=== PATIENT | male | born 1965 | race Caucasian/White ===

== ENCOUNTER 2019-08-16 09:04 | Emergency (ER) | payer MEDICAID, SELFPAY ==
--- NOTE | ~2019-08-16 | CT_ITS ---
EXAMINATION: CT brain wo con DATE: 08/16/2019 09:54 INDICATION: Head injury. TECHNIQUE: Computed tomography (CT) of the head was performed without intravenous contrast. The mA wa s adjusted according to patient size. Iterative reconstruction technique was employed. The dose-lengt h product was 1059.33 mGy-cm. COMPARISON: Head CT 12/26/2018 FINDINGS: There is no intracranial hemorrhage, acute infarction, or abnormal intracranial mass lesion . The ventricles are normal in size. The orbits are normal. There is mild mucosal thickening in the p aranasal sinuses. The mastoid air cells are normal. IMPRESSION: 1. Normal brain. Reviewed, dictated and finalized at location A. [employer] IMPRESSION: 1. Normal brain.
--- NOTE | 2019-08-16 09:35 | ED.FALL ---
HPI - Fall General Chief Complaint: Fall Stated Complaint: fall/hi Time Seen by Provider: 08/16/19 09:27 Source: patient Mode of arrival: ambulatory Limitations: no limitations History of Present Illness HPI Narrative: Pt is a 53 y/o male who presents to the ED with c/o a fall that lead to a head injury yesterday. Pt states that he was standing at a [employer] and was leaning on something when the back wheels fell off and he hit the back of his head. Pt states that there was some blood present to the back of his head. Pt denies LOC. He reports intermittent nausea since his fall. complaint: fall Onset (ago): day(s) (yesterday) Fall from: standing Place fall occurred: other (super 8) Loss of consciousness: none Symptoms prior to fall: none Context: tripped/slipped Location of injury: head Associated symptoms (after fall): other (nausea) Related Data Allergies Allergy/AdvReac Type Severity Reaction Status Date / Time No Known Allergies Allergy Unverified 02/21/19 09:30 Review of Systems Review of Systems: All systems reviewed & are unremarkable except as noted in HPI and below Gastrointestinal: Gastrointestinal: Reports nausea Neurologic: Reports other (head injury) Comments: Denies: LOC PMFSH Past Medical History Medical History (Updated 08/16/19 @ 11:44 by Peyman Park MD) Arthritis Left wrist fracture Prediabetes Right wrist fracture Shoulder fracture Surgical History Surgical History (Updated 08/16/19 @ 10:03 by Elisabeth Osborn) No significant past surgical history Social History Social History (Updated 08/16/19 @ 10:03 by Elisabeth Osborn) Smoking status: Never smoker Gender identity (if verbalized by the patient): Male Exam Narrative: Exam Narrative: GENERAL: Well-appearing, well-nourished, and in no acute distress. HEAD: Normocephalic, atraumatic.has an abrasion on the scalp EYES: PERRLA and EOMI. ENT: Nares clear, no rhinorrhea or epistaxis. Mucous membranes moist. NECK: Supple. CHEST: Clear to auscultation. No respiratory distress. HEART: Regular rate and rhythm. No murmur heard. Normal peripheral pulses. ABDOMEN: Soft, non tender, nondistended, normal active bowel sounds. EXTREMITIES: Normal range of motion. No edema. SKIN: Warm, dry, no rash. NEURO: No focal deficits. Alert and oriented x3. PSYCH: Normal mood and affect. Course Course Emergency Course: Inform patient about has CT findings. On review of his vital signs were found to have elevated blood pressure. Patient states that he has not taken his blood pressure medicine for the last 3 days as is he keeps forgetting. Advised him to be compliant with his medication, take Tylenol or ibuprofen for headache and follow-up with his primary doctor Vital Signs Vital signs: Vital Signs Temperature 36.9 C 08/16/19 10:00 Pulse Rate 92 08/16/19 10:00 Respiratory Rate 18 08/16/19 10:00 Pulse Oximetry 99 08/16/19 10:00 Temperature 36.9 C 08/16/19 10:00 Pulse Rate 84 08/16/19 11:09 Respiratory Rate 24 H 08/16/19 11:09 Blood Pressure 224/90 H 08/16/19 11:09 Pulse Oximetry 98 08/16/19 11:09 MDM - Fall Imaging Data Radiologist's impression: ITS Impressions Head CT 08/16/19 10:02 IMPRESSION: 1. Normal brain. Discharge Plan Discharge Clinical Impression: Minor head injury, Hypertension Patient Disposition: Home, Self-Care Condition: Stable Instructions: Head Injury (ED), Chronic Hypertension (ED) Additional Instructions: continue home medication follow iwht your doctor in the next few days to re check blood pressure, take Tylenol for headache. Follow-up/Referrals: Vy,AMAURI Reynolds [Primary Care Provider] - Time of Disposition: 11:44
[2019-08-16 10:00] VITALS: PULSE 92; RESP 18; TEMP 36.9; O2SAT 99
[2019-08-16 11:09] VITALS: BP 224/90; PULSE 84; RESP 24; O2SAT 98
[2019-08-16] MEDS: CLONIDINE HCL 0.2 MG TABLET PO (11:25)
[2019-08-16 11:54] VITALS: BP 227/99; PULSE 85; RESP 19; O2SAT 99
== END 2019-08-16 11:55 | disposition home or self-care (01) ==
PROVIDERS: Emergency Provider Family Medicine; PCP Registered Nurse
DX: S09.90XA Unspecified injury of head, initial encounter (principal); I10 Essential (primary) hypertension; R73.03 Prediabetes; W18.39XA Other fall on same level, initial encounter
CPT/HCPCS: 70450; 99284; A9270